=== PATIENT | male | born 1965 | race Two or more races ===

== ENCOUNTER 2016-11-30 16:55 | Emergency (ER) | payer OTHER ==
[~2016-11-30] VITALS: Ht 182.9 cm; Wt 111.6 kg
[2016-11-30 17:25] VITALS: BP 170/97
--- NOTE | 2016-11-30 17:33 | PHYS DOC ---
Adult General Chief Complaint Chief Complaint: LACERATION/AVULSION HPI HPI Patient is a 51 year old [place]-speaking male who presents with left hand laceration. Patient states he got cut by a piece of metal. Interpretation was provided by a friend. Review of Systems Review of Systems Constitutional: Denies fever or chills [] Musculoskeletal: Denies back pain or joint pain [] Integument: left hand laceration Neurologic: Denies headache, focal weakness or sensory changes [] Current Medications Current Medications Current Medications Medications (Trade) Dose Ordered Sig/Jesus Start Time Stop Time Status Last Admin Dose Admin Diphtheria/ Tetanus/Acell Pertussis (Boostrix) 0.5 ml ONCE ONCE 11/30/16 18:00 11/30/16 18:01 DC Lidocaine/Sodium Bicarbonate (Buffered Lidocaine 1%) 20 ml 1X ONCE 11/30/16 18:00 11/30/16 18:01 DC 11/30/16 18:01 20 ML Allergies Allergies Allergies Coded Allergies Type Severity Reaction Last Updated Verified No Known Drug Allergies 11/30/16 No Physical Exam Physical Exam Constitutional: Well developed, well nourished, no acute distress, non-toxic appearance. [] Skin: Left dorsal ring finger proximal aspect with a laceration approximately 2 cm long. Left dorsal middle finger with another superficial laceration approximately 3 cm long. There is no tendon involvement in both lacerations. Full range of motion to the left hand and fingers including flexion and extension of the fingers. +2 left radial pulse. Cap refill less than 2 seconds the left fingers. Adequate radial medial sensation to the left hand. Back: No tenderness, no CVA tenderness. [] Extremities: No tenderness, no cyanosis, no clubbing, ROM intact, no edema. [] Neurologic: Alert and oriented X 3, normal motor function, normal sensory function, no focal deficits noted. [] Psychologic: Affect normal, judgement normal, mood normal. [] Current Patient Data Vital Signs Vital Signs Date Time Temp Pulse Resp B/P (MAP) Pulse Ox O2 Delivery O2 Flow Rate FiO2 11/30/16 17:25 97.9 68 18 98 Room Air 97.9 EKG EKG [] Radiology/Procedures Radiology/Procedures Indication: []Left ring finger laceration Procedure: The patient was placed in the appropriate position and anesthesia around the laceration was 1% buffered lidocaine, the laceration was explored for foreign objects as well as any tendon lacerations, none was found. The area was then cleaned with the 100 ML of normal saline and Betadine. The laceration was closed with 6 interrupted sutures using 5. 0 Ethilon. The wound was covered with nonstick dressing. Total repaired wound length: Approximately 3 cm long Other Items: none The patient tolerated the procedure well Complications: none Course & Med Decision Making Course & Med Decision Making Pertinent Labs and Imaging studies reviewed. (See chart for details) Patient has lacerations to the left ring finger and the left middle finger after being cut by a piece of metal. The laceration on the middle finger superficial and does not need closing. Left hand x-rays interpreted by Dr. Philippe were negative for any acute findings. Laceration on the left ring finger was closed by me as noted in procedures. Patient was provided follow-up information and return precautions. Stitches should be removed in 7-10 days. Dragon Disclaimer Dragon Disclaimer This electronic medical record was generated, in whole or in part, using a voice recognition dictation system. Departure Departure Impression: Primary Impression: Laceration of left hand Disposition: 01 HOME, SELF-CARE Condition: STABLE Patient Instructions: Laceration Care, Adult Additional Instructions: You were seen with left hand laceration. Keep the area clean and dry. You can apply Neosporin to the area twice a day. You can shower. Follow-up with the emergency room or your own doctor in 7-10 days for sutures removal. Monitor the area for signs and symptoms of infection including but not limited to increased redness warmth yellow drainage from the area and return to the ED if they occur. Problem Qualifiers Primary Impression: Laceration of left hand Encounter type: initial encounter Foreign body presence: unspecified Qualified Codes: S61.412A - Laceration without foreign body of left hand, initial encounter OLU CORTEZ APRN Nov 30, 2016 17:33
[2016-11-30] MEDS ORDERED: LIDOCAINE 1% / SOD BICARB 8.4% 20 ML VIAL. IJ ONE (18:00)
[2016-11-30] MEDS ORDERED: DIPHTH,PERTUSS(ACELL),TET TOX 0.5 ML DISP.SYRIN. VAX IM ONE (18:00)
--- NOTE | 2016-12-01 08:13 | RAD ---
Indication laceration fourth digit. AP oblique and lateral views of the left hand were obtained. There is a soft tissue injury seen associated with the ring finger. An acute or significant bony finding is not seen
== END 2016-11-30 19:04 | disposition home or self-care (01) ==
LOC: ER 16:55
DX: S61.215A Laceration without foreign body of left ring finger without damage to nail, initial encounter (principal); Y28.8XXA Contact with other sharp object, undetermined intent, initial encounter; Y93.89 Activity, other specified; Y99.8 Other external cause status; Y92.89 Other specified places as the place of occurrence of the external cause
CPT/HCPCS: 12002; 73130; 90471; 90715; 99284-25